=== PATIENT | male | born 1990 | race Two or more races ===

== ENCOUNTER 2018-08-30 14:45 | Inpatient (IN) ==
[2018-08-30] MEDS ORDERED: LORazepam 1 MG Tablet PO ONE (16:14)
--- NOTE | 2018-08-30 16:14 | ED ---
HPI General Chief Complaint: Psychiatric Symptoms Stated Complaint: anxiety Time Seen by Provider: 08/30/18 16:03 Source: patient Mode of arrival: ambulatory Limitations: no limitations History of Present Illness HPI Narrative: 28-year-old male complains of anxiety depression. Patient has history of depression for the past 6 years. Patient was seen by psychiatrist and was put on lamotrigine, fluoxetine and alprazolam. Patient states that he stopped taking on medication except alprazolam as needed for anxiety. Patient states that he drinks alcohol daily. Last drink was yesterday. Patient also smoked pot and cigarettes occasionally. Patient denies any headache. She denies any chest pain or shortness of breath. Patient denies abdominal pain. Patient denies any recent injury. Patient was seen in emergency room in [place] yesterday and was referred to [facility] for evaluation. complaint: Reports feels depressed and other (Anxiety) Onset (ago): day(s) Duration: constant History of same: Yes Relieving factors: medication Exacerbating factors: none Context: Reports recent alcohol abuse and not taking psychiatric medications Associated psychiatric symptoms: Reports depression Associated symptoms: Reports denies other symptoms Treatments prior to arrival: Reports none Related Data Home Medications Medication Instructions Recorded Confirmed alprazolam 0.5 mg PO BID PRN 08/30/18 08/30/18 Allergies Allergy/AdvReac Type Severity Reaction Status Date / Time No Known Allergies Allergy Verified 08/30/18 14:58 Review of Systems ROS: all other systems reviewed are negative PMFSH History History Provided By: Patient Medical History Medical History Anxiety (Acute) Panic attacks (Acute) Surgical History Surgical History No history of previous surgery (Acute) Social History Social History Substance History: Active Abuse Second Hand Smoke Exposure: Yes Smoking Status: Current every day smoker Tobacco Type: Cigarettes How Often Do You Have a Drink Containing Alcohol: 4 or more times a week Recent Travel in [facility] within the Last 8 Weeks: No Recent Out of Country Travel within the Last 8 Weeks: No Exam Narrative Exam Narrative: GENERAL: Well-nourished, well-developed patient. SKIN: Focused skin assessment warm/dry. HEAD: Normocephalic. EYES: No scleral icterus. No injection or drainage. NECK: Supple, trachea midline. No JVD or lymphadenopathy. CARDIOVASCULAR: Regular rate and rhythm without murmurs, gallops, or rubs. RESPIRATORY: Breath sounds equal bilaterally. No accessory muscle use. GASTROINTESTINAL: Abdomen soft, non-tender, nondistended. MUSCULOSKELETAL: No cyanosis, or edema. BACK: Nontender without obvious deformity. No CVA tenderness. Neurologic exam normal. Course Initial Documented Vital Signs Temperature 98.8 F 08/30/18 14:56 Pulse Rate 67 08/30/18 14:56 Respiratory Rate 20 08/30/18 14:56 Blood Pressure 151/85 H 08/30/18 14:56 Pulse Oximetry 98 08/30/18 14:56 Last Documented Vital Signs Temperature 97.8 F 08/31/18 07:26 Pulse Rate 80 08/31/18 07:26 Respiratory Rate 18 08/31/18 07:26 Blood Pressure 108/62 08/31/18 07:26 Pulse Oximetry 100 08/31/18 07:26 Medical Decision Making MDM Narrative Medical decision making narrative: 28-year-old male with history anxiety depression. Patient having worsening of anxiety symptoms recently. Ativan 1 mg p.o. given. Psychiatric screening in process. 1707 p.m. Patient is medically cleared for psychiatric evaluation. Medical Screen Exam Complete: Yes Emergency Medical Condition: Yes Differential Diagnosis Differential Diagnosis: Differential diagnosis including acute anxiety attack, depression, adjustment disorder. Lab Data Lab results reviewed: Yes I reviewed the patient's lab results. Result diagrams: 08/30/18 16:10 08/30/18 16:10 Lab Results 08/30/18 08/30/18 08/30/18 Range/Units 16:10 16:10 16:10 WBC 5.2 (4.0-11.0) th/mm3 RBC 5.15 (4.50-5.90) mil/mm3 Hgb 15.5 (13.0-17.0) gm/dL Hct 46.3 (39.0-51.0) % MCV 90.1 (80.0-100.0) fL MCH 30.1 (27.0-34.0) pg MCHC 33.4 (32.0-36.0) % RDW 13.5 (11.6-17.2) % Plt Count 194 (150-450) th/mm3 MPV 9.6 (7.0-11.0) fL Neut % (Auto) 53.8 (16.0-70.0) % Lymph % (Auto) 37.8 (9.0-44.0) % Slope % (Auto) 6.5 (0.0-8.0) % Eos % (Auto) 0.8 (0.0-4.0) % Baso % (Auto) 1.1 (0.0-2.0) % Neut # (Auto) 2.8 (1.8-7.7) th/mm3 Lymph # (Auto) 2.0 (1.0-4.8) th/mm3 Slope # (Auto) 0.3 (0.0-0.9) th/mm3 Eos # (Auto) 0.0 (0.0-0.4) th/mm3 Baso # (Auto) 0.1 (0.0-0.2) th/mm3 WBC Differential . Differential Comment Auto diff final Sodium 140 (136-145) meq/L Potassium 3.9 (3.5-5.1) meq/L Chloride 106 (98-107) meq/L Carbon Dioxide 26.8 (21.0-32.0) meq/L Anion Gap 7 (5-15) meq/L BUN 9 (7-18) mg/dL Creatinine 0.78 (0.60-1.30) mg/dL Estimated GFR Greater than 89 (>89) mL/min Random Glucose 88 (74-106) mg/dL Calcium 9.1 (8.5-10.1) mg/dL Total Bilirubin 0.7 (0.2-1.0) mg/dL AST 13 L (15-37) U/L ALT 23 (12-78) U/L Alkaline Phosphatase 70 (45-117) U/L Total Protein 8.3 H (6.4-8.2) g/dL Albumin 4.4 (3.4-5.0) g/dL TSH 0.737 (0.358-3.740) uIU/mL Urine Opiates Screen Neg (Neg) Ur Barbiturates Screen Neg (Neg) Ur Amphetamines Screen Neg (Neg) U Benzodiazepines Scrn Pos H (Neg) Urine Cocaine Screen Neg (Neg) U Cannabinoids Screen Pos H (Neg) Serum Alcohol Less than 3 (0-5) mg/dL Discharge Plan Discharge Disposition Patient Disposition: 30 Still Patient Physicians Team ED Provider: Mahendra Borges Primary Care Provider: Primary Care Virginia Marie Rxs /Orders / Referrals /Forms Prescriptions: No Action alprazolam 0.5 mg Tablet 0.5 mg PO BID PRN (Reason: Anxiety) RF: 0 Status ED Status: Medically Cleared
[2018-08-30 16:21] LABS: Baso # (Auto) 0.1 th/mm3 (0.0-0.2); Baso % (Auto) 1.1 % (0.0-2.0); Eos % (Auto) 0.8 % (0.0-4.0); Hematocrit 46.3 % (39.0-51.0); Hemoglobin 15.5 gm/dL (13.0-17.0); Lymph % (Auto) 37.8 % (9.0-44.0); Mean Corpuscular HGB Conc 33.4 % (32.0-36.0); Mean Corpuscular Hemoglobin 30.1 pg (27.0-34.0); Mean Corpuscular Volume 90.1 fL (80.0-100.0); Mean Platelet Volume 9.6 fL (7.0-11.0); Mono # (Auto) 0.3 th/mm3 (0.0-0.9); Mono % (Auto) 6.5 % (0.0-8.0); Neut # (Auto) 2.8 th/mm3 (1.8-7.7); Neut % (Auto) 53.8 % (16.0-70.0); Platelet Count 194 th/mm3 (150-450); Red Blood Count 5.15 mil/mm3 (4.50-5.90); Red Cell Distribution Width 13.5 % (11.6-17.2); White Blood Count 5.2 th/mm3 (4.0-11.0)
[2018-08-30 16:28] LABS: Amphetamine Screen,Urine Neg (Neg); Barbiturate Screen,Urine Neg (Neg); Cannabinoid Screen,Urine Pos (Neg); Cocaine Screen,Urine Neg (Neg)
[2018-08-30 16:38] LABS: Opiate Screen,Urine Neg (Neg)
[2018-08-30 16:50] LABS: Albumin 4.4 g/dL (3.4-5.0); Anion Gap 7 meq/L (5-15); Blood Urea Nitrogen 9 mg/dL (7-18); Calcium 9.1 mg/dL (8.5-10.1); Carbon Dioxide 26.8 meq/L (21.0-32.0); Chloride 106 meq/L (98-107); Glomerular Filtration Rate Greater Than 89 mL/min (>89); Glucose,Random 88 mg/dL (74-106); Potassium 3.9 meq/L (3.5-5.1); Sodium 140 meq/L (136-145)
[2018-08-30 16:51] LABS: Alanine Aminotransferase 23 U/L (12-78); Aspartate Aminotransferase 13 U/L (15-37)
[2018-08-30 17:01] LABS: Alkaline Phosphatase 70 U/L (45-117); Thyroid Stimulating Hormone 0.737 uIU/mL (0.358-3.740); Total Protein 8.3 g/dL (6.4-8.2)
[2018-08-31] MEDS ORDERED: LORazepam 1 MG Tablet PO ONE (02:56)
[2018-08-31] MEDS ORDERED: Acetaminophen 325 MG Tablet PO PRN (12:04)
[2018-08-31] MEDS: Escitalopram 10 MG Tablet PO SCH (13:03)
--- NOTE | 2018-08-31 14:09 | P.CONPSY ---
Provisional Diagnosis Admission Date: August 31, 2018 12:09 [place] I.: Generalized anxiety disorder History of Present Illness Primary Care Provider: No Primary Care Physician History of Present Illness: This is a 28-year-old male who presents to this facility voluntarily for reportedly experiencing anxiety and panic attacks times several months. He is not previously known to this facility. Reviewed electronic medical record, labs, discussed case with staff. Noted patient toxicology screen positive for benzodiazepines and cannabinoids. Patient was assessed in D 38. He was found to be awake, alert, and oriented x4. His speech is clear, logical, organized, of normal kirit and volume. At this time, he denies suicidal ideation, homicidal ideation, auditory or visual hallucinations. However, he does report having suicidal ideation with no plan multiple times in recent days. There does not appear to be any psychosis or hermila present. I can elicit no delusional material. His mood is anxious as is his affect. Patient reports that he has been experiencing "anxiety, panic, constant fear and worry for the past couple of months but it is getting worse". He states that he wakes up in a panic and has had some decrease in pleasure. He reports a decreased appetite stating "when I eat it makes my chest hurt that I freak out panic because I think something is wrong with my heart". Of note he has been worked up by a manager baby as well as a reconciliation machine operator and nothing was found since likely these are psychosomatic symptoms. He reports that his energy has been "pretty okay". But states that he has racing negative thoughts. He advises that he "cannot stop thinking about patient presents with complaint of an heart is always negative". He advises that driving and having to wait in [place] trigger his anxiety. He claims that his symptoms have worsened over the past month. He denies any previous suicidal attempts but does state that an aunt of his completed suicide. He denies any previous inpatient admissions for psychiatric conditions. He states that he smokes an occasional cigarette, drinks alcohol daily and smokes marijuana daily. He lives with his , their 2 children, his 's mother and her 3 grown brothers. He reports that he recently quit a job due to his panic. He did state that previously he was medicated with fluoxetine, lamotrigine, and alprazolam. He states that the alprazolam and the fluoxetine made him feel like a "zombie". He opted to stop those but continued to take the alprazolam. Review of Systems All other systems reviewed negative except as stated in HPI [facility] - History History Provided By: Patient - Medical History Medical History: Medical History (Last Reviewed 08/31/18 @ 14:07 by REYES Romero) Anxiety Panic attacks - Surgical History Surgical History: Surgical History (Last Reviewed 08/31/18 @ 14:07 by REYES Romero) No history of previous surgery - Tobacco History Second Hand Smoke Exposure: Yes Tobacco Use In Past 30 Days: Yes Smoking Status: Current every day smoker Tobacco Type: Cigarettes - Alcohol History How Often Do You Have a Drink Containing Alcohol: 4 or more times a week - Substance Use History Substance History: Active Abuse - Travel History Recent Travel in the [place] Within the Last 8 Weeks: No Recent Travel Out of the Country Within the Last 8 Weeks: No - Immunization History Tetanus Immunization: <5 Years Medications and Allergies Active Medications: Active Medications Acetaminophen (Tylenol) 650 mg PO Q4H PRN PRN Reason: Pain 1-5 or Temp >101F Al Hydrox/Mg Hydrox/Simethicone (Mag-Al Plus Susp Liq) 30 ml PO Q6H PRN PRN Reason: DYSPEPSIA Al Hydroxide/Mg Hydroxide (Milk Of Magnesia Liq) 30 ml PO Q12H PRN PRN Reason: Mild Constipation Diphenhydramine HCl (Benadryl) 50 mg PO HS PRN PRN Reason: INSOMNIA Escitalopram Oxalate (Lexapro) 10 mg PO DAILY PRADEEP Last Admin: 08/31/18 13:03 Dose: 10 mg Hydroxyzine HCl (Atarax) 50 mg PO Q6H PRN PRN Reason: ANXIETY Allergies Allergy/AdvReac Type Severity Reaction Status Date / Time No Known Allergies Allergy Verified 08/30/18 14:58 Home Medications Medication Instructions Recorded Confirmed Type alprazolam 0.5 mg PO BID PRN 08/30/18 08/30/18 History Exam Vital signs: Vital Signs 08/30/18 14:56 08/31/18 06:17 08/31/18 07:26 Temperature 98.8 F 97.8 F Pulse Rate 67 80 Respiratory Rate 20 18 Blood Pressure 151/85 H 111/71 108/62 Pulse Oximetry 98 100 Intake & Output 08/30/18 08/31/18 08/31/18 18:59 06:59 18:59 Weight 156 lb - Constitutional mild distress, average body habitus, cooperative - Routine Neurological Exam Present: alert, oriented X3 - Routine Psychiatric Exam Present: anxious Mental Status Examination Appearance: Appropriate Consciousness: Alert Orientation: x4 Motor Activity: Normal gait Speech: Unremarkable Language: Adequate Fund of Knowledge: Adequate Attention and Concentration: Adequate Memory: Unremarkable Mood: Anxious Affect: Anxious Thought Process & Associations: Intact, Logical Thought Content: Racing thoughts Hallucination Type: None Delusion Type: None Suicidal Ideation: Yes Suicidal Plan: No Suicidal Intention: No Homicidal Ideation: No Homicidal Plan: No Homicidal Intention: No Insight: Fair Judgment: Impulsive Assessment and Plan - Plan Plan: Estimated LOS: [4] days patient was admitted to a locked psychiatric unit for further evaluation and treatment as deemed necessary. Justification for Continued Inpatient Stay: Moving this patient to a less restrictive environment would likely result in decompensation.
[2018-09-01 08:20] LABS: Anion Gap 7 meq/L (5-15); Blood Urea Nitrogen 16 mg/dL (7-18); Carbon Dioxide 28.4 meq/L (21.0-32.0); Chloride 106 meq/L (98-107); Glomerular Filtration Rate Greater Than 89 mL/min (>89); Glucose,Random 86 mg/dL (74-106); Potassium 4.4 meq/L (3.5-5.1); Sodium 141 meq/L (136-145)
[2018-09-01 08:21] LABS: Cholesterol 201 mg/dL (120-200); Triglycerides 101 mg/dL (42-150)
[2018-09-01 08:23] LABS: Chol/HDL Ratio 2.45 Ratio; HDL Cholesterol 81.9 mg/dL (40.0-60.0); LDL Cholesterol,Calculated 99 mg/dL (0-99)
[2018-09-01] MEDS: Escitalopram 10 MG Tablet PO SCH (09:22)
--- NOTE | 2018-09-01 12:12 | P.HPPSY ---
Provisional Diagnosis Admission Date: August 31, 2018 12:09 [place] I.: Generalized anxiety disorder with panic attacks, dysthymic disorder Competence Certification of Person's Competence To Provide Express and Informed Consent I have personally examined Mohsen Correa, a person being served at [facility] on, September 01, 2018 1210. Express and informed consent means consent voluntarily given in writing, by a competent person, after sufficient explanation and disclosure of the subject matter involved to enable the person to make a knowing and willful decision without any element of force, fraud, deceit, duress, or other form of constraint or coercion. This person is 18 years of age or older, is not now known to be incompetent to consent to treatment with a guardian advocate, and does not have a health care surrogate or proxy currently making medical treatment decisions. I have found this person to be one of the following: [xxxx] Competent to provide express and informed consent, as defined above, for voluntary admission to this facility and is competent to provide express and informed consent for treatment. He/she has the consistent capacity to make well reasoned, willful, and knowing decisions concerning his or her medical or mental health treatment. The person fully and consistently understands the purpose of the admission for examination/placement and is fully capable of personally exercising all rights assured under [place] Incompetent to provide express and informed consent to voluntary admission, and this is incompetent to provide express and informed consent to treatment. The person must be transferred to involuntary status and a petition for a guardian advocate filed with the Circuit Court. [] Refusing to provide express and informed consent to voluntary admission but is competent to provide express and informed consent for treatment. The person must be discharged or transferred to involuntary status. Form shall be completed within 24 hours of a person's arrival at the receiving facility and filed in the clinical record of each person: 1. Admitted on a voluntary basis 2. Permitted to provide express and informed consent to his/her own treatment 3. Allowed to transfer from involuntary to voluntary status 4. Prior to permitting a person to consent to his or her own treatment after having been previously found incompetent to consent to treatment. History of Present Illness Capacity: Has capacity History of Present Illness: Patient is a 28-year-old male who initially came to the emergency department on 08/27 complaining of depression with anxiety. He had been on medication by primary care physician. He was assessed in the ED and released. He returned to the ED on 08/30 with complaints of increased anxiety panic attack vague suicidal ideation that was more debilitating. He was screen at that point in time urine toxicology positive for marijuana and benzodiazepines and appears to have been prescribed alprazolam, these does state that he uses marijuana quite frequently stating that it does help with his anxiety and somatic issues related to that. Patient describes the panic attacks as coming without significant prodromal symptoms except perhaps a chest pain or pressure he develops chest pain shortness of breath diaphoresis also. He also at times develops abdominal pain and cramping that he states is relieved by marijuana. He states this been going on for a significant period of time. Though he denies suicidality voices or visions. He states he has had mid and late insomnia with a.m. energy along with crying spells. He has had a decrease in his appetite with multiple pound weight loss. Though he does state his sex drive continues normal for him that he can show signs of humor. He denies any voices or visions with this he has vague suicidal ideation but he denies any intent or plan or past suicide attempts. States for a while number of years ago he did not misuse alcohol related to this. That at the insistence of his who continues with marijuana, basically daily basis. He denies other drug use. He denies voices or visions with this. Patient denies any prior psychiatric contact or hospitalization. He has been in the flexion alprazolam in the past. He denies any prior physical and/or sexual abuse. He states he did have a extended relative who committed suicide and had anxiety disorder. Denies any other significant drug problems with the family. Patient denies any medical or surgical problems. Patient does state he lives with his and 2 children or about 9 and 11 years of age. He states his is a mother of both children that they were made teenagers when they are the did for a period of time will live with her parents. There is an episode early on when patient's moved out with the children moved in with her mother though they reunited with his 6 months are now . They live with her mother because of mother is significantly ill with cancer of the bone. 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 States his relationship with his children is good. We did discuss medication patient is quite anxious about getting relief his son is possible. Though I reiterated his need for cooperation and patients with us. Will increase his Lexapro to 20 mg daily. Patient states his dreams are pretty intrusive at times somewhat stressful and irritating. I will add Seroquel 100 mg at at bedtime. We will offer her Atarax for anxiety during the day. Hopeless be fairly short stay we will refer also Caleb Flor darvin for further care and attention and perhaps counseling in the community - Inpatient Certification I certify that the inpatient services were ordered in accordance with Medicare regulations governing the order. This includes certification that hospital inpatient services are reasonable and necessary and in the case of services not specified as inpatient-only under 42 CFR 419.22(n), that they are appropriately provided as inpatient services in accordance to with the 2-midnight benchmark under 43 CFR 412.3(e) I certify that inpatient psychiatric hospital services are medically necessary. Evaluation and treatment and/or diagnostic testing are expected to improve the patient's condition. The patient needs on a daily basis, active treatment furnished directly by or requiring the supervision of inpatient psychiatric facility personnel. Estimated Total Length of Stay (Days): 4 Plans for Post Hospital Care: Home Review of Systems All other systems reviewed negative except as stated in HPI PMFSH - History History Provided By: Patient - Medical / Surgical Hx Neg / Unobtainable Medical Problems Denied: Yes Surgical History: No Previous Surgery - Medical History Medical History: Medical History (Last Reviewed 09/01/18 @ 12:22 by Chinmay Newberry MD) Anxiety Panic attacks - Surgical History Surgical History: Surgical History (Last Reviewed 09/01/18 @ 12:22 by Chinmay Newberry MD) No history of previous surgery - Family History Family History: Family History (Last Updated 09/01/18 @ 12:22 by Chinmay Newberry MD) Other Suicide - Social History I have reviewed the patient's Social History: Yes - Tobacco History Second Hand Smoke Exposure: Yes Tobacco Use In Past 30 Days: Yes Smoking Status: Current every day smoker Tobacco Type: Cigarettes - Alcohol History How Often Do You Have a Drink Containing Alcohol: 4 or more times a week - Substance Use History Substance History: Active Abuse - Substance Use Type Benzodiazepines Status: Active Route Used: By Mouth Reason for Use: Calm Down Comment: Per patient, prescribed Xanax. 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 Marijuana Status: Active Route Used: Inhalation Reason for Use: Calm Down Comment: Patient reports having previously smoked marijuana, then "stopped for about 5-6 years" then patient reports starting to use marijuana again "this year " (2018). Patient reports that the marijuana "helps a little bit" (calm down, sleep). - Travel History Recent Travel in the [place] Within the Last 8 Weeks: No Recent Travel Out of the Country Within the Last 8 Weeks: No - Immunization History Tetanus Immunization: <5 Years Hx Influenza Vaccine This Season: No Quality Measures - Psychiatric History Psychological trauma history: Patient denies Violence risk to others in the last 6 months: Low Violence risk to self in the last 6 months: Low to moderate - Substance Abuse History Drug or alcohol use in the past 12 months: Daily marijuana user alcohol a few months ago - Patient Strengths Patient's strengths (minimum of 2): Patient verbal able access healthcare calm cooperative with supportive family Medications and Allergies Active Medications: Active Medications Acetaminophen (Tylenol) 650 mg PO Q4H PRN PRN Reason: Pain 1-5 or Temp >101F Al Hydrox/Mg Hydrox/Simethicone (Mag-Al Plus Susp Liq) 30 ml PO Q6H PRN PRN Reason: DYSPEPSIA Al Hydroxide/Mg Hydroxide (Milk Of Magnesia Liq) 30 ml PO Q12H PRN PRN Reason: Mild Constipation Al Hydroxide/Mg Hydroxide (Milk Of Magnesia Liq) 30 ml PO Q12H PRN PRN Reason: Mild Constipation Diphenhydramine HCl (Benadryl) 50 mg PO HS PRN PRN Reason: INSOMNIA Last Admin: 08/31/18 21:18 Dose: 50 mg Escitalopram Oxalate (Lexapro) 20 mg PO DAILY PRADEEP Hydroxyzine HCl (Atarax) 50 mg PO Q6H PRN PRN Reason: ANXIETY Last Admin: 09/01/18 05:16 Dose: 50 mg Quetiapine Fumarate (Seroquel) 100 mg PO HS [facility] Allergies Allergy/AdvReac Type Severity Reaction Status Date / Time No Known Allergies Allergy Verified 08/30/18 14:58 Home Medications Medication Instructions Recorded Confirmed Type alprazolam 0.5 mg PO BID PRN 08/30/18 08/30/18 History Results - Labs CBC & Chem 7: 08/30/18 16:10 09/01/18 07:09 Labs: Laboratory Results - last 24 hr 09/01/18 07:09 Sodium 141 Potassium 4.4 Chloride 106 Carbon Dioxide 28.4 Anion Gap 7 BUN 16 Creatinine 0.94 Estimated GFR Greater than 89 Random Glucose 86 Calcium 9.0 Triglycerides 101 Cholesterol 201 H LDL Cholesterol, Calc 99 HDL Cholesterol 81.9 H Cholesterol/HDL Ratio 2.45 Exam Vital signs: Vital Signs 08/31/18 13:20 08/31/18 17:40 08/31/18 22:15 Temperature 98.2 F 98.3 F Pulse Rate 72 80 72 Respiratory Rate 17 16 16 Blood Pressure 133/99 H 125/80 141/96 H Pulse Oximetry 98 99 09/01/18 05:31 Temperature 97.8 F Pulse Rate 72 Respiratory Rate 16 Blood Pressure 111/65 Pulse Oximetry 99 Intake & Output 08/31/18 09/01/18 09/01/18 18:59 06:59 18:59 Intake Total 360 / 360 Balance 360 / 360 Weight 70.45 kg 69.1 kg Intake: Oral 360 / 360 Other: Weight On Admission 70.45 kg Narrative: Patient seen sitting quietly in his room he is in no acute distress, patient in no respiratory distress, complains of vague chest pressure, no complaints of abdominal pain. Patient moving all 4 extremities without difficulty Mental Status Examination Appearance: Appropriate Consciousness: Alert Orientation: x4 Motor Activity: Normal gait Speech: Unremarkable Language: Adequate Fund of Knowledge: Adequate Attention and Concentration: Adequate Memory: Unremarkable Mood: Sad, Anxious Affect: Other (Slight increased range and intensity) Thought Process & Associations: Intact, Logical Thought Content: Bizarre thinking Hallucination Type: None Delusion Type: None Suicidal Ideation: Yes Suicidal Plan: No Suicidal Intention: No Homicidal Ideation: No Homicidal Plan: No Homicidal Intention: No Insight: Fair Judgment: Impulsive Assessment and Plan - Assessment (1) Generalized anxiety disorder with panic attacks Code(s): F41.1 - Generalized anxiety disorder; F41.0 - Panic disorder [episodic paroxysmal anxiety] Status: Acute (2) Dysthymia Code(s): F34.1 - Dysthymic disorder Status: Acute - Plan Plan: Patient remains depressed and anxious with strong history of her panic attacks. Patient meets criteria for inpatient psychiatric hospitalization and medication. Signed medication orders above. For now continue treatment Justification for Continued Inpatient Stay: At this time patient would decompensate a place to a lower level of care Discharge Planning: Return home with family Request Healthcare Surrogate/Guardian Advocate?: No
[2018-09-01] MEDS ORDERED: Escitalopram 10 MG Tablet PO ONE (14:15)
[2018-09-01 15:51] LABS: Hemoglobin A1c 4.9 % (4.3-6.0)
[2018-09-01] MEDS ORDERED: QUEtiapine 100 MG Tablet PO SCH (21:00)
[2018-09-01] MEDS: Aluminum/Magnesium/Simethacone Susp 30 ML UDC PO PRN (21:09)
[2018-09-01 21:43] VITALS: RESP 18; O2SAT 100
[2018-09-02 05:37] VITALS: BP 133/80; PULSE 71; TEMP 97.7
[2018-09-02] MEDS: Aluminum/Magnesium/Simethacone Susp 30 ML UDC PO PRN (08:48)
--- NOTE | 2018-09-02 12:58 | P.DSPSY ---
Psychiatry Discharge Summary Inpatient Psychiatric care?: Yes Advance Directives: No Mental Health Advance Directive: No Health Care Proxy: No - Admission Admission Date: August 31, 2018 12:09 - Admission Diagnosis (1) Generalized anxiety disorder with panic attacks Code(s): F41.1 - Generalized anxiety disorder; F41.0 - Panic disorder [episodic paroxysmal anxiety] (2) Dysthymia Code(s): F34.1 - Dysthymic disorder Brief History: Patient is a 28-year-old male who initially came to the emergency department on 08/27 complaining of depression with anxiety. He had been on medication by primary care physician. He was assessed in the ED and released. He returned to the ED on 08/30 with complaints of increased anxiety panic attack vague suicidal ideation that was more debilitating. He was screen at that point in time urine toxicology positive for marijuana and benzodiazepines and appears to have been prescribed alprazolam, these does state that he uses marijuana quite frequently stating that it does help with his anxiety and somatic issues related to that. Patient describes the panic attacks as coming without significant prodromal symptoms except perhaps a chest pain or pressure he develops chest pain shortness of breath diaphoresis also. He also at times develops abdominal pain and cramping that he states is relieved by marijuana. He states this been going on for a significant period of time. Though he denies suicidality voices or visions. He states he has had mid and late insomnia with a.m. energy along with crying spells. He has had a decrease in his appetite with multiple pound weight loss. Though he does state his sex drive continues normal for him that he can show signs of humor. He denies any voices or visions with this he has vague suicidal ideation but he denies any intent or plan or past suicide attempts. States for a while number of years ago he did not misuse alcohol related to this. That at the insistence of his who continues with marijuana, basically daily basis. He denies other drug use. He denies voices or visions with this. Patient denies any prior psychiatric contact or hospitalization. He has been in the flexion alprazolam in the past. He denies any prior physical and/or sexual abuse. He states he did have a extended relative who committed suicide and had anxiety disorder. Denies any other significant drug problems with the family. Patient denies any medical or surgical problems. Patient does state he lives with his and 2 children or about 9 and 11 years of age. He states his is a mother of both children that they were made teenagers when they are the did for a period of time will live with her parents. There is an episode early on when patient's moved out with the children moved in with her mother though they reunited with his 6 months are now . They live with her mother because of mother is significantly ill with cancer of the bone. 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 States his relationship with his children is good. We did discuss medication patient is quite anxious about getting relief his son is possible. Though I reiterated his need for cooperation and patients with us. Will increase his Lexapro to 20 mg daily. Patient states his dreams are pretty intrusive at times somewhat stressful and irritating. I will add Seroquel 100 mg at at bedtime. We will offer her Atarax for anxiety during the day. Hopeless be fairly short stay we will refer also [facility] for further care and attention and perhaps counseling in the community Tobacco Use In Past 30 Days: Yes How Often Do You Have a Drink Containing Alcohol: 4 or more times a week Hospital Course: Patient has been compliant with medications showing no significant side effects or problems so far with the medicine. States she slept somewhat better last night. Still has some anxiety and chest discomfort. Patient states his talk to his . She misses some at home. He misses her. He denies suicidality homicidality voices or visions. He is aware of the fact that it is too early to see much effect from the medication. He still wishes to be discharged today he is willing to continue the medication and continue to follow-up outpatient through [facility]. At this time patient does not meet criteria for involuntary psychiatric hospitalization as mentioned above he denies suicidality homicidality voice or visions. Thus I will allow the patient be discharged today to himself with Rx times 1 month off his scheduled medications and 20 Atarax tablets with no refill. I also strongly advised him to abstain from any use of marijuana. Also recommend the possibility of using the to [facility] outpatient support groups - Discharge Discharge Date: 09/02/18 - Discharge Diagnosis (1) Generalized anxiety disorder with panic attacks Diagnosis: Principal Code(s): F41.1 - Generalized anxiety disorder; F41.0 - Panic disorder [episodic paroxysmal anxiety] Status: Acute (2) Dysthymia Diagnosis: Secondary Code(s): F34.1 - Dysthymic disorder Status: Acute Discharge Disposition: Home - Discharge Instructions Discharge Diet: Regular Diet Activities You Can Perform: Regular- No Restrictions - Discharge Time > 30 minutes Mental Status Examination Appearance: Appropriate Consciousness: Alert Orientation: x4 Motor Activity: Normal gait Speech: Unremarkable Language: Adequate Fund of Knowledge: Adequate Attention and Concentration: Adequate Memory: Unremarkable Mood: Sad, Anxious Affect: Other (Slight increased range and intensity) Thought Process & Associations: Intact, Logical Thought Content: Bizarre thinking Hallucination Type: None Delusion Type: None Suicidal Ideation: Yes Suicidal Plan: No Suicidal Intention: No Homicidal Ideation: No Homicidal Plan: No Homicidal Intention: No Insight: Fair Judgment: Impulsive Discharge/Advance Care Plan - Results Vital Signs: Last Vital Signs Temp 97.7 F 09/02/18 05:37 Pulse 71 09/02/18 05:37 Resp 18 09/02/18 05:37 BP 133/80 09/02/18 05:37 Pulse Ox 100 09/02/18 05:37 Lab Results: Abnormal Lab Results 09/01/18 07:09 Hemoglobin A1c 4.9 Laboratory Results Hemoglobin A1c 4.9 % (4.3-6.0) 09/01/18 07:09 Triglycerides 101 mg/dL (42-150) 09/01/18 07:09 Cholesterol 201 mg/dL (120-200) H 09/01/18 07:09 LDL Cholesterol, Calc 99 mg/dL (0-99) 09/01/18 07:09 HDL Cholesterol 81.9 mg/dL (40.0-60.0) H 09/01/18 07:09 TSH 0.737 uIU/mL (0.358-3.740) 08/30/18 16:10 Summary of Procedures: None done Pending Results: None - Medications Number of antipsychotic medications at discharge: 1 - Discharge Care Plan Goals to Promote Your Health: * To prevent worsening of your condition and complications * To maintain your health at the optimal level Directions to Meet Your Goals: Take your medications as prescribed Follow your dietary instruction Follow activity as directed Keep your appointments as scheduled Take your immunizations and boosters as scheduled If your symptoms worsen call your PCP, if no PCP go to Urgent Care Center or Emergency Room For 10/05 questions related to your inpatient stay or results of tests pending at discharge, please contact Dr. Chinmay Newberry MD at Smoking is Dangerous to Your Health. Avoid second hand smoking
== END 2018-09-02 14:50 | disposition home or self-care (01) | DRG 880 ==
LOC: NEPD 14:45 → NEDA 08-31 12:09 → H260 08-31 13:28
PROVIDERS: ADMIT Psychiatry & Neurology Psychiatry; ATTEND Psychiatry & Neurology Psychiatry
CPT/HCPCS: 80048; 80053; 80061; 80307; 83036; 84443; 85025; 90791; 99285; Q0163